=== PATIENT | female | born 1940 | race American Indian/Alaskan Native ===

== ENCOUNTER 2018-11-18 13:39 | Emergency (ER) | payer SELFPAY ==
--- NOTE | 2018-11-18 13:58 | C.PDOC ---
History Of Present Illness 78 y/o female pt brought to the ER by EMS for disorientation. Information is limited due to pt's dementia. [place] Per EMS bystander concerned due to pt looking disoriented. As per pt, "I never know what year it is". As per EMS, pt's family is notified and is coming. Pt feels fine and has no recent illness or any other physical complaints/trauma. Time Seen by Provider: 11/18/18 13:48 Chief Complaint (Nursing): Medical Clearance History Per: Patient History/Exam Limitations: no limitations Onset/Duration Of Symptoms: Hrs Current Symptoms Are (Timing): Still Present Past Medical History Reviewed: Historical Data, Nursing Documentation, Vital Signs Vital Signs: Last Vital Signs Temp 98.1 F 11/18/18 13:50 Pulse 92 H 11/18/18 13:50 Resp 16 11/18/18 13:50 BP 154/92 H 11/18/18 13:50 Pulse Ox 98 11/18/18 13:50 Family History: States: No Known Family Hx - Social History Hx Alcohol Use: No Hx Substance Use: No - Immunization History Hx Tetanus Toxoid Vaccination: No Hx Influenza Vaccination: No Review Of Systems Except As Marked, All Systems Reviewed And Found Negative. Review Of Systems: ROS cannot be obtained secondary to pt's inabilty to answer questions. (dementia) Physical Exam - Physical Exam Appears: Well, Non-toxic, No Acute Distress Skin: Warm, Dry Head: Atraumatic, Normacephalic Eye(s): bilateral: Normal Inspection, PERRL, EOMI Oral Mucosa: Moist Throat: Normal Neck: Normal ROM, Supple Chest: Symmetrical Cardiovascular: Rhythm Regular Respiratory: Normal Breath Sounds Gastrointestinal/Abdominal: Soft, No Tenderness Extremity: Normal ROM (x4) Neurological/Psych: Normal Speech, Normal Cognition, Other (Oriented x2) ED Course And Treatment O2 Sat by Pulse Oximetry: 98 (RA) Pulse Ox Interpretation: Normal Progress Note: Plans: -- nutrition Progress - Re-Evaluation Re-evaluation Note: 11/18/18 14:47 DAUGHTER CALLED, STATES IS COMING FROM [facility] AND UNABLE TO BE HERE UNTIL EVENING. DAUGHTER TALKED ON PHONE W PATIENT, DAUGHTER STATES PT SOUNDS @ [facility]. PT INCREASINGLY AGITATED AND UNCOOPERATIVE ABOUT "BEING FORCED TO BE HERE", WISHES IMMEDIATE DC HOME AND DOES NOT WANT TO WAIT FOR FAMILY. PT REFUSES TO STAY IN [facility]. PT DOES NOT WANT TAX[facility] OR [facility], STATES WILL GET HOME ON HER OWN. DAUGHTER AWARE OF ER FINDINGS AND AGREES W PLAN PER RN. Disposition Counseled Patient/Family Regarding: Diagnosis, Need For Followup - Disposition Referrals: YOUR,PMD [Other] Disposition: HOME/ ROUTINE Disposition Time: 14:49 Condition: GOOD Instructions: Dementia (DC) Forms: DCWafers (Malaysian) - Clinical Impression Clinical Impression: Dementia, Medical assessment - Scribe Statement The provider has reviewed the documentation as recorded by the Scribe [place] Do Provider Attestation: All medical record entries made by the Scribe were at my direction and personally dictated by me. I have reviewed the chart and agree that the record accurately reflects my personal performance of the history, physical exam, medical decision making, and the department course for this patient. I have also personally directed, reviewed, and agree with the discharge instructions and disposition.
[2018-11-18 14:04] VITALS: BP 154/92; PULSE 92; RESP 16; TEMP 98.1; O2SAT 98
== END 2018-11-18 14:45 | disposition home or self-care (01) ==
LOC: C.ER 13:39
DX: F03.90 Unspecified dementia, unspecified severity, without behavioral disturbance, psychotic disturbance, mood disturbance, and anxiety (principal)